=== PATIENT | female | born 1995 | race Two or more races ===

== ENCOUNTER 2023-05-30 17:07 | Emergency (ER) | payer MEDICAID ==
[~2023-05-30] VITALS: Ht 162.6 cm; Wt 104.5 kg
[2023-05-30 17:31] VITALS: BP 133/64; PULSE 79; TEMP 98.3; O2SAT 98
[2023-05-30] MEDS ORDERED: OXYC-145 PO (18:45)
[2023-05-30] MEDS ORDERED: CLIN150C2 PO (18:45)
[2023-05-30] MEDS: clindamycin 150mg capsule PO ONE (19:01)
[2023-05-30 19:02] VITALS: RESP 16
[2023-05-30] MEDS: oxyCODONE/APAP 5-325mg tablet PO ONE (19:02)
== END 2023-05-30 19:30 | disposition home or self-care (01) ==
LOC: ER 17:08
DX: K04.7 Periapical abscess without sinus (principal); Z88.8 Allergy status to other drugs, medicaments and biological substances; Z79.899 Other long term (current) drug therapy
CPT/HCPCS: 99283